=== PATIENT | male | born 1945 | race Caucasian/White ===

== ENCOUNTER 2019-03-22 23:32 | Emergency (ER) | payer SELFPAY ==
[~2019-03-22] VITALS: Ht 177.8 cm; Wt 131.1 kg
[2019-03-23] MEDS ORDERED: DIAZEPAM5 MG PO (03:50)
[2019-03-23] MEDS ORDERED: WARFARIN SODIU2.5 MG PO (03:50)
[2019-03-23] MEDS ORDERED: AMIODARONE HCL200 MG PO (03:50)
[2019-03-23] MEDS ORDERED: ADCIRCA20 MG PO (03:50)
[2019-03-23] MEDS ORDERED: alogliptin PO (03:50)
[2019-03-23] MEDS ORDERED: PIOGLITAZONE HC45 MG PO (03:50)
[2019-03-23] MEDS ORDERED: ATORVASTATIN CA20 MG PO (03:50)
[2019-03-23] MEDS ORDERED: METFORMIN HCL500 MG PO (03:50)
[2019-03-23] MEDS ORDERED: FINASTERIDE5 MG PO (03:50)
[2019-03-23] MEDS ORDERED: BACLOFEN10 MG PO (03:50)
[2019-03-23] MEDS ORDERED: TIZANIDINE HCL4 MG PO (03:50)
[2019-03-23] MEDS ORDERED: LISINOPRIL2.5 MG PO (03:50)
[2019-03-23] MEDS ORDERED: VITAMIN D250000 UNIT PO (03:50)
[2019-03-23] MEDS ORDERED: GLIPIZIDE5 MG PO (03:50)
[2019-03-23] MEDS ORDERED: ASPIR 8181 MG PO (03:50)
== END 2019-03-22 23:53 | disposition left against medical advice (07) ==
LOC: ER 23:32
DX: R69 Illness, unspecified (principal)

== ENCOUNTER 2019-11-30 15:13 | Observation (INO) | payer OTHER ==
[~2019-11-30] VITALS: Ht 177.8 cm; Wt 131.1 kg
[~2019-11-30 15:13] MED LIST: ADCIRCA20 MG PO; AMIODARONE HCL200 MG PO; ASPIR 8181 MG PO; ATORVASTATIN CA20 MG PO; BACLOFEN10 MG PO; DIAZEPAM5 MG PO; FINASTERIDE5 MG PO; GLIPIZIDE5 MG PO; LISINOPRIL2.5 MG PO; METFORMIN HCL500 MG PO; PIOGLITAZONE HC45 MG PO; TIZANIDINE HCL4 MG PO; VITAMIN D250000 UNIT PO; WARFARIN SODIU2.5 MG PO; alogliptin PO
[2019-11-30 16:14] LABS: BASOPHILS % 0.2 % (0.0-1.0); HEMATOCRIT 34.2 % (38.2-49.6); HEMOGLOBIN 11.1 g/dL (14.0-18.0); LYMPHOCYTES # (AUTO) 0.3 (1.0-3.2); LYMPHOCYTES % 2.9 % (18.0-39.1); MEAN CORPUSCULAR HEMOGLOBIN 31.2 pg (28-32); MEAN CORPUSCULAR HGB CONC 32.5 g/dL (31-35); MEAN CORPUSCULAR VOLUME 96.1 fL (81-99); MONOCYTES # (AUTO) 0.6 (0.2-0.8); MONOCYTES % 5.7 % (4.4-11.3); NEUTROPHILS # (AUTO) 9.4 (2.1-6.9); NEUTROPHILS % 90.5 % (38.7-80.0); PLATELET COUNT 245 x10e3/uL (140-360); RED BLOOD COUNT 3.56 x10e6/uL (4.3-5.7); RED CELL DISTRIBUTION WIDTH 15.5 % (11.7-14.4)
[2019-11-30 16:26] LABS: PARTIAL THROMBOPLASTIN TIME 59.3 seconds (23.8-35.5)
[2019-11-30 16:27] LABS: PROTHROMBIN TIME 45.5 seconds (11.9-14.5)
[2019-11-30 16:28] LABS: INR 4.39
--- NOTE | 2019-11-30 16:29 | Diagnostic Imaging Report ---
EXAMINATION: CHEST SINGLE (PORTABLE) INDICATION: Leg pain COMPARISON: None FINDINGS: LINES/TUBES:None LUNGS:The lungs are well-inflated. No focal consolidation or pulmonary edema. PLEURA:No pleural effusion or pneumothorax. MEDIASTINUM:The cardiac silhouette is at the upper limits of normal for size. Atherosclerotic calcifications of the thoracic aorta. BONES/SOFT TISSUES:No acute osseous injury. ABDOMEN:No free air under the diaphragm. IMPRESSION: No focal pneumonia or pulmonary edema. Signed by: Randy Yousif MD on 11/30/2019 4:26 PM
[2019-11-30 16:32] LABS: ALANINE AMINOTRANSFERASE 15 IU/L (0-55); ALBUMIN 3.5 g/dL (3.5-5.0); ALBUMIN/GLOBULIN RATIO 1.1 (0.8-2.0); ALKALINE PHOSPHATASE 58 IU/L (40-150); ANION GAP 14.8 mmol/L (8-16); BLOOD UREA NITROGEN 36 mg/dL (7-26); BUN/CREATININE RATIO 21 (6-25); CALCIUM 8.6 mg/dL (8.4-10.2); CARBON DIOXIDE 25 mmol/L (22-29); CHLORIDE 101 mmol/L (98-107); CREATINE KINASE 115 IU/L (30-200); CREATININE, SERUM 1.72 mg/dL (0.72-1.25); EST GLOMERULAR FILTRATION RATE 39 ML/MIN (60-); GLUCOSE 306 mg/dL (74-118); POTASSIUM 4.8 mmol/L (3.5-5.1); SODIUM 136 mmol/L (136-145)
[2019-11-30] MEDS ORDERED: PHYTONADIONE 10 MG/ML AMP PO ONE (17:30)
[2019-11-30] MEDS ORDERED: SODIUM CHLORIDE 0.9% 500ML 500 ML IV ONE (18:00)
--- NOTE | 2019-11-30 18:52 | Diagnostic Imaging Report ---
EXAM: Soft tissue Ultrasound INDICATION: SOFT TISSUE, EVAL HEMATOMA RIGHT LEG COMPARISON: None TECHNIQUE: Transverse and sagittal images of the right leg were obtained. FINDINGS/IMPRESSION: Ultrasound images of the right leg were obtained and demonstrated a 8.3 x 3.4 x 5.8 cm subcutaneous soft tissue hematoma. Signed by: Luke Mendoza MD on 11/30/2019 6:48 PM
[2019-11-30] MEDS ORDERED: MORPHINE SULFATE 2 MG/ML SYR 1ML IV PRN (19:15)
[2019-11-30] MEDS ORDERED: ONDANSETRON HCL INJ 2MG/ML 2ML 2 MG/ML VIAL IV PRN ×2 (19:15→22:15)
[2019-11-30] MEDS ORDERED: SODIUM CHLORIDE 0.9% 1000ML 1,000 ML IV SCH (19:15)
[2019-11-30] MEDS ORDERED: MORPHINE SULFATE INJ 4 MG/ML INJ 1ML IV PRN (19:30)
[2019-11-30 20:00] VITALS: BP 186/79
[2019-11-30 20:10] VITALS: BP 176/79
[2019-11-30 21:00] VITALS: BP 176/79
[2019-11-30] MEDS ORDERED: AMLODIPINE BESYLATE 10 MG TAB PO ONE (21:45)
[2019-11-30] MEDS ORDERED: TADALAFIL 20 MG PO SCH (22:15)
[2019-11-30] MEDS ORDERED: ACETAMINOPHEN 325 MG TAB PO PRN (22:15)
[2019-11-30] MEDS ORDERED: TIZANIDINE HCL 4 MG TAB PO SCH (22:15)
[2019-11-30] MEDS ORDERED: ACETAMINOPHEN/CODEINE 300MG - 30MG TAB PO PRN (22:15)
[2019-11-30] MEDS ORDERED: ONDANSETRON HCL 4 MG ORAL DISINTEGRATING TAB PO PRN (22:15)
[2019-11-30] MEDS ORDERED: HYDRALAZINE HCL 25 MG TAB PO PRN (22:15)
[2019-11-30] MEDS ORDERED: DIAZEPAM 5 MG TAB PO PRN (22:15)
[2019-11-30] MEDS ORDERED: DEXTROSE 50% SYRINGE 50 ML IV PRN ×3 (22:30)
[2019-11-30] MEDS: INSULIN LISPRO 100 UNIT/1 ML 3ML VIAL SQ SCH (22:30)
[2019-12-01] VITALS: BP 186/79
[2019-12-01] MEDS: FINASTERIDE 5 MG TAB PO SCH ×2 (00:59→09:00)
[2019-12-01 04:00] VITALS: BP 126/64
[2019-12-01 05:35] LABS: BASOPHILS % 0.2 % (0.0-1.0); EOSINOPHILS # (AUTO) 0.1 (0.0-0.4); EOSINOPHILS % 1.1 % (0.0-6.0); HEMATOCRIT 31.5 % (38.2-49.6); HEMOGLOBIN 10.6 g/dL (14.0-18.0); LYMPHOCYTES # (AUTO) 1.4 (1.0-3.2); LYMPHOCYTES % 15.2 % (18.0-39.1); MEAN CORPUSCULAR HEMOGLOBIN 31.7 pg (28-32); MEAN CORPUSCULAR HGB CONC 33.7 g/dL (31-35); MEAN CORPUSCULAR VOLUME 94.3 fL (81-99); MONOCYTES # (AUTO) 1.1 (0.2-0.8); MONOCYTES % 11.3 % (4.4-11.3); NEUTROPHILS # (AUTO) 6.8 (2.1-6.9); NEUTROPHILS % 71.6 % (38.7-80.0); PLATELET COUNT 229 x10e3/uL (140-360); RED BLOOD COUNT 3.34 x10e6/uL (4.3-5.7); RED CELL DISTRIBUTION WIDTH 15.5 % (11.7-14.4)
[2019-12-01 05:56] LABS: INR 2.49; PROTHROMBIN TIME 28.8 seconds (11.9-14.5)
[2019-12-01 06:05] LABS: ALBUMIN 3.2 g/dL (3.5-5.0); ALBUMIN/GLOBULIN RATIO 1.1 (0.8-2.0); ANION GAP 10.9 mmol/L (8-16); CALCIUM 8.6 mg/dL (8.4-10.2); CREATININE, SERUM 1.36 mg/dL (0.72-1.25); POTASSIUM 3.9 mmol/L (3.5-5.1)
[2019-12-01] MEDS ORDERED: GLIPIZIDE 5 MG TAB PO SCH (07:30)
[2019-12-01] MEDS: INSULIN LISPRO 100 UNIT/1 ML 3ML VIAL SQ SCH ×2 (07:30→11:30)
[2019-12-01 07:50] VITALS: BP 147/67
[2019-12-01 08:30] VITALS: BP 147/67
[2019-12-01] MEDS ORDERED: PIOGLITAZONE HCL 15 MG TAB PO SCH (09:00)
[2019-12-01] MEDS ORDERED: ERGOCALCIFEROL 50,000 UNIT CAP PO SCH (09:00)
[2019-12-01] MEDS ORDERED: BACLOFEN 10 MG TAB PO SCH ×2 (09:00→21:00)
[2019-12-01] MEDS ORDERED: SILDENAFIL CITRATE 20 MG TAB PO SCH (17:00)
[2019-12-01] MEDS ORDERED: WARFARIN SOD 3 MG TAB PO SCH (17:00)
[2019-12-01] MEDS ORDERED: ATORVASTATIN 20 MG TAB PO SCH (21:00)
== END 2019-12-01 13:26 | disposition home or self-care (01) ==
LOC: ER 15:13 → ERHOLD 19:07 → MED/SURG2 20:06
PROVIDERS: ADMIT Internal Medicine; ATTEND Internal Medicine
DX: M79.81 Nontraumatic hematoma of soft tissue (principal); T45.515A Adverse effect of anticoagulants, initial encounter; I10 Essential (primary) hypertension; E11.9 Type 2 diabetes mellitus without complications; I48.91 Unspecified atrial fibrillation; Z79.01 Long term (current) use of anticoagulants; F41.9 Anxiety disorder, unspecified; Z83.3 Family history of diabetes mellitus; Z82.49 Family history of ischemic heart disease and other diseases of the circulatory system; L30.8 Other specified dermatitis; M25.461 Effusion, right knee; G47.00 Insomnia, unspecified; I87.8 Other specified disorders of veins; Z91.14 Patient's other noncompliance with medication regimen; Z79.82 Long term (current) use of aspirin; Z79.84 Long term (current) use of oral hypoglycemic drugs
CPT/HCPCS: 36415; 71045; 76882; 80053; 82550; 82553; 82948; 83880; 84484; 85025; 85610; 85730; 93005; 93971; 99284; G0378; J3430; J7040

== ENCOUNTER 2022-02-19 15:19 | Emergency (ER) | payer MEDICARE, OTHER ==
[~2022-02-19] VITALS: Ht 177.8 cm; Wt 131.1 kg
[2022-02-19] MEDS ORDERED: ONDANSETRON HCL INJ 2MG/ML 2ML 2 MG/ML VIAL IV STA (15:26)
[2022-02-19 15:54] LABS: BASOPHILS % 0.3 % (0.0-1.0); EOSINOPHILS % 0.1 % (0.0-6.0); HEMATOCRIT 36.9 % (38.2-49.6); LYMPHOCYTES # (AUTO) 0.6 (1.0-3.2); LYMPHOCYTES % 5.1 % (18.0-39.1); MEAN CORPUSCULAR HEMOGLOBIN 30.6 pg (28-32); MEAN CORPUSCULAR HGB CONC 32.5 g/dL (31-35); MEAN CORPUSCULAR VOLUME 94.1 fL (81-99); MONOCYTES # (AUTO) 0.6 (0.2-0.8); MONOCYTES % 5.6 % (4.4-11.3); NEUTROPHILS # (AUTO) 9.7 (2.1-6.9); NEUTROPHILS % 88.4 % (38.7-80.0); PLATELET COUNT 200 x10e3/uL (140-360); RED BLOOD COUNT 3.92 x10e6/uL (4.3-5.7); RED CELL DISTRIBUTION WIDTH 14.7 % (11.7-14.4)
[2022-02-19 16:11] LABS: ALBUMIN 3.4 g/dL (3.5-5.0); ANION GAP 14.8 mmol/L (8-16); CALCIUM 8.3 mg/dL (8.4-10.2); CREATININE, SERUM 1.3 mg/dL (0.72-1.25); POTASSIUM 3.8 mmol/L (3.5-5.1)
== END 2022-02-19 17:53 | disposition home or self-care (01) ==
LOC: ER 15:23
DX: R07.89 Other chest pain (principal); R06.02 Shortness of breath; I10 Essential (primary) hypertension; E11.65 Type 2 diabetes mellitus with hyperglycemia; E78.5 Hyperlipidemia, unspecified; F41.9 Anxiety disorder, unspecified; I25.10 Atherosclerotic heart disease of native coronary artery without angina pectoris; I48.91 Unspecified atrial fibrillation
CPT/HCPCS: 0223U; 36415; 71045; 80053; 83880; 84484; 85025; 99285; J2405

== ENCOUNTER 2024-08-07 16:22 | Emergency (ER) | payer MEDICARE, OTHER ==
[~2024-08-07] VITALS: Ht 177.8 cm; Wt 131.1 kg
[2024-08-07 17:03] VITALS: PULSE 76; RESP 18; TEMP 100.2; O2SAT 100
[2024-08-07 17:31] LABS: BILIRUBIN,URINE NEGATIVE (NEGATIVE); CLARITY,URINE SL CLOUDY (CLEAR); COLOR,URINE RED (YELLOW); GLUCOSE, URINE NEGATIVE (NEGATIVE); KETONES,URINE NEGATIVE (NEGATIVE); LEUKOCYTE ESTERASE ,URINE TRACE (NEGATIVE); NITRITE,URINE NEGATIVE (NEGATIVE); PH,URINE 7 (5 - 7); PROTEIN,URINE DIPSTICK >=300 (NEGATIVE); URINE UROBILINOGEN 0.2 mg/dL (0.2 - 1)
[2024-08-07 17:45] LABS: BACTERIA,URINE FEW /HPF; RBC,URINE >50 /HPF (0-5); WBC,URINE (MAN) 0-5 /HPF (0-5)
[2024-08-07] MEDS ORDERED: CEFDINIR300 MG PO (18:04)
== END 2024-08-07 18:09 | disposition home or self-care (01) ==
LOC: ER 17:09
DX: R50.9 Fever, unspecified (principal); N30.91 Cystitis, unspecified with hematuria; R30.0 Dysuria; I10 Essential (primary) hypertension; E11.9 Type 2 diabetes mellitus without complications; J44.9 Chronic obstructive pulmonary disease, unspecified; I48.91 Unspecified atrial fibrillation; E78.5 Hyperlipidemia, unspecified; I25.10 Atherosclerotic heart disease of native coronary artery without angina pectoris; F41.9 Anxiety disorder, unspecified; Z79.01 Long term (current) use of anticoagulants
CPT/HCPCS: 81001; 87086; 87186; 99283

== ENCOUNTER 2024-08-09 13:19 | Inpatient (IN) | payer MEDICARE, OTHER ==
[2024-08-09] VITALS (8 sets, daily range): BP systolic 128–156; BP diastolic 56–77; PULSE 74–94; RESP 16–20; TEMP 97.7–100.2; O2SAT 85–98
[~2024-08-09] VITALS: Ht 180.3 cm; Wt 117.9 kg
[~2024-08-09 13:19] MED LIST changes: +CEFDINIR300 MG PO
[2024-08-09 13:54] LABS: BASOPHILS % 0.2 % (0.0-1.0); EOSINOPHILS % 0.2 % (0.0-6.0); HEMATOCRIT 36.9 % (38.2-49.6); HEMOGLOBIN 11.6 g/dL (14.0-18.0); LYMPHOCYTES # (AUTO) 0.2 (1.0-3.2); LYMPHOCYTES % 4.5 % (18.0-39.1); MEAN CORPUSCULAR HEMOGLOBIN 31.3 pg (28-32); MEAN CORPUSCULAR HGB CONC 31.4 g/dL (31-35); MEAN CORPUSCULAR VOLUME 99.5 fL (81-99); MONOCYTES # (AUTO) 0.1 (0.2-0.8); MONOCYTES % 1.7 % (4.4-11.3); PLATELET COUNT 186 x10e3/uL (140-360); RED BLOOD COUNT 3.71 x10e6/uL (4.3-5.7); RED CELL DISTRIBUTION WIDTH 14.5 % (11.7-14.4); WHITE BLOOD COUNT 5.32 x10e3/uL (4.8-10.8)
[2024-08-09 14:04] LABS: CLARITY,URINE CLEAR (CLEAR); COLOR,URINE YELLOW (YELLOW); PH,URINE 7 (5 - 7)
[2024-08-09 14:05] LABS: BILIRUBIN,URINE NEGATIVE (NEGATIVE); GLUCOSE, URINE 1+ (NEGATIVE); KETONES,URINE NEGATIVE (NEGATIVE); LEUKOCYTE ESTERASE ,URINE NEGATIVE (NEGATIVE); NITRITE,URINE NEGATIVE (NEGATIVE); PROTEIN,URINE DIPSTICK >=300 (NEGATIVE); URINE UROBILINOGEN 0.2 mg/dL (0.2 - 1)
[2024-08-09 14:15] LABS: ALBUMIN 2.4 g/dL (3.5-5.0); ALBUMIN/GLOBULIN RATIO 0.6 (0.8-2.0); ANION GAP 17.9 mmol/L (8-16); BILIRUBIN,TOTAL 0.8 mg/dL (0.2-1.2); CALCIUM 8.5 mg/dL (8.4-10.2); CREATININE, SERUM 2.17 mg/dL (0.72-1.25); POTASSIUM 3.9 mmol/L (3.5-5.1); TOTAL PROTEIN 6.3 g/dL (6.5-8.1)
[2024-08-09 14:17] LABS: BACTERIA,URINE RARE /HPF; EPITHELIAL CELLS,URINE RARE /LPF
[2024-08-09] MEDS ORDERED: SODIUM CHLORIDE 0.9% 1000ML 1,000 ML IV SCH (14:45)
[2024-08-09] MEDS ORDERED: HYDRALAZINE HCL 20 MG/ML VIAL IV PRN (15:30)
[2024-08-09] MEDS ORDERED: DEXTROSE 50% SYRINGE 50 ML IV PRN (15:30)
[2024-08-09] MEDS: INSULIN LISPRO 100 UNIT/1 ML 3ML VIAL SQ SCH (16:30)
[2024-08-09] MEDS: BACLOFEN 10 MG TAB PO SCH (18:43)
[2024-08-09] MEDS: APIXABAN 5 MG TABLET PO SCH (18:43)
[2024-08-09] MEDS: SODIUM CHLORIDE 0.9% 1000ML 1,000 ML IV SCH (18:43)
[2024-08-09] MEDS: LACTOBACILLUS ACIDOPHILUS CAPSULE PO SCH (21:52)
[2024-08-09] MEDS: ATORVASTATIN 20 MG TAB PO SCH (21:53)
[2024-08-09] MEDS: GLIPIZIDE 5 MG TAB PO ONE (23:09)
[2024-08-10] VITALS (8 sets, daily range): BP systolic 134–175; BP diastolic 64–85; PULSE 67–116; RESP 18–22; TEMP 97.8–98.2; O2SAT 95–99
[2024-08-10 05:32] LABS: BASOPHILS % 0.2 % (0.0-1.0); EOSINOPHILS % 0.2 % (0.0-6.0); HEMATOCRIT 41.4 % (38.2-49.6); HEMOGLOBIN 12.1 g/dL (14.0-18.0); LYMPHOCYTES # (AUTO) 0.4 (1.0-3.2); MEAN CORPUSCULAR HEMOGLOBIN 31.1 pg (28-32); MEAN CORPUSCULAR HGB CONC 29.2 g/dL (31-35); MEAN CORPUSCULAR VOLUME 106.4 fL (81-99); MONOCYTES # (AUTO) 1.2 (0.2-0.8); MONOCYTES % 9.5 % (4.4-11.3); NEUTROPHILS # (AUTO) 10.8 (2.1-6.9); NEUTROPHILS % 86.6 % (38.7-80.0); PLATELET COUNT 172 x10e3/uL (140-360); RED BLOOD COUNT 3.89 x10e6/uL (4.3-5.7); RED CELL DISTRIBUTION WIDTH 14.8 % (11.7-14.4); WHITE BLOOD COUNT 12.48 x10e3/uL (4.8-10.8)
[2024-08-10 06:09] LABS: CALCIUM 8.5 mg/dL (8.4-10.2); CREATININE, SERUM 2.29 mg/dL (0.72-1.25)
[2024-08-10] MEDS ORDERED: GLIPIZIDE 5 MG TAB PO SCH (07:30)
[2024-08-10] MEDS: PIOGLITAZONE HCL 15 MG TAB PO SCH (08:39)
[2024-08-10] MEDS: LISINOPRIL 2.5 MG TAB PO SCH (08:40)
[2024-08-10] MEDS: GLIPIZIDE 5 MG TAB PO SCH (08:40)
[2024-08-10] MEDS: AMIODARONE HCL 200 MG TAB PO SCH (08:40)
[2024-08-10] MEDS: ASPIRIN 81 MG CHEW TAB PO SCH (08:41)
[2024-08-10] MEDS: FINASTERIDE 5 MG TAB PO SCH (08:41)
[2024-08-10] MEDS: DIAZEPAM 5 MG TAB PO SCH (08:44)
[2024-08-10] MEDS: ONDANSETRON HCL INJ 2MG/ML 2ML 2 MG/ML VIAL IV PRN (08:50)
[2024-08-10] MEDS: ACETAMINOPHEN 325 MG TAB PO PRN (08:51)
[2024-08-10] MEDS: BACLOFEN 10 MG TAB PO SCH (23:31)
[2024-08-11] VITALS (10 sets, daily range): BP systolic 142–172; BP diastolic 72–97; PULSE 68–78; RESP 18–22; TEMP 97.4–100.2; O2SAT 97–100
[2024-08-11 00:47] LABS: % IRON SATURATION 12 % (15-50); IRON 33 ug/dL (65-175); TOTAL IRON BINDING CAPACITY 265 ug/dL (261-478); TRANSFERRIN 189 mg/dL (174-364)
[2024-08-11 02:15] LABS: FOLATE 6.9 ng/mL (7.0-15.4)
[2024-08-11 05:16] LABS: BASOPHILS % 0.5 % (0.0-1.0); EOSINOPHILS % 0.3 % (0.0-6.0); LYMPHOCYTES # (AUTO) 0.3 (1.0-3.2); MEAN CORPUSCULAR HEMOGLOBIN 31.1 pg (28-32); MEAN CORPUSCULAR HGB CONC 30.6 g/dL (31-35); MEAN CORPUSCULAR VOLUME 101.7 fL (81-99); MONOCYTES # (AUTO) 0.8 (0.2-0.8); MONOCYTES % 11.4 % (4.4-11.3); NEUTROPHILS # (AUTO) 5.5 (2.1-6.9); NEUTROPHILS % 83.2 % (38.7-80.0); PLATELET COUNT 163 x10e3/uL (140-360); RED BLOOD COUNT 3.54 x10e6/uL (4.3-5.7); RED CELL DISTRIBUTION WIDTH 14.7 % (11.7-14.4); WHITE BLOOD COUNT 6.58 x10e3/uL (4.8-10.8)
[2024-08-11 05:48] LABS: ANION GAP 15.5 mmol/L (8-16); CALCIUM 7.7 mg/dL (8.4-10.2); CREATININE, SERUM 2.9 mg/dL (0.72-1.25); POTASSIUM 3.5 mmol/L (3.5-5.1)
[2024-08-11] MEDS: DICYCLOMINE HCL 10 MG CAP PO SCH (08:58)
[2024-08-11] MEDS: ERGOCALCIFEROL 50,000 UNIT CAP PO SCH (09:07)
[2024-08-11] MEDS: IRON SUCROSE 100 MG in SODIUM CHLORIDE 0.9% 100 ML IV SCH (14:16)
[2024-08-11] MEDS: DOCUSATE SODIUM 100 MG CAP PO PRN (16:57)
[2024-08-12 02:32] LABS: CDIFF AG QUIK CHEK NEGATIVE (NEGATIVE)
[2024-08-12 02:33] LABS: CDIFF TOX QUIK CHEK NEGATIVE (NEGATIVE)
[2024-08-12 03:42] VITALS: BP 137/66; PULSE 63; RESP 18; TEMP 98.3; O2SAT 100
[2024-08-12 06:09] LABS: ALBUMIN/GLOBULIN RATIO 0.6 (0.8-2.0); ANION GAP 14.4 mmol/L (8-16); BILIRUBIN,TOTAL 0.3 mg/dL (0.2-1.2); CALCIUM 7.6 mg/dL (8.4-10.2); CREATININE, SERUM 3.16 mg/dL (0.72-1.25); TOTAL PROTEIN 5.6 g/dL (6.5-8.1)
[2024-08-12 06:12] LABS: POTASSIUM 3.4 mmol/L (3.5-5.1)
[2024-08-12 08:40] VITALS: BP 172/91; PULSE 70; RESP 20; TEMP 98.3; O2SAT 100
[2024-08-12 09:44] VITALS: BP 172/91; PULSE 70; RESP 20; TEMP 98.3; O2SAT 100
[2024-08-12] MEDS: CEFTRIAXONE 2 GM in SODIUM CHLORIDE 0.9% 100 ML IV SCH (10:04)
[2024-08-12] MEDS ORDERED: CIPRO500 MG PO (11:04)
[2024-08-12] MEDS ORDERED: ACIDOPHILUS1 EAC1 PO (11:06)
[2024-08-12 11:49] VITALS: BP 139/85; PULSE 84; RESP 19; TEMP 98.3; O2SAT 100
[2024-08-12] MEDS ORDERED: FERROUS SULFAT325 M1 PO (12:15)
[2024-08-12] MEDS: LACTATED RINGER'S 500 ML IV ONE (13:39)
[2024-08-12 16:00] VITALS: BP 163/92; PULSE 69; RESP 18; TEMP 98; O2SAT 100
[2024-08-12 19:13] LABS: ANION GAP 14.9 mmol/L (8-16); CALCIUM 7.7 mg/dL (8.4-10.2); CREATININE, SERUM 3.17 mg/dL (0.72-1.25); POTASSIUM 3.9 mmol/L (3.5-5.1)
[2024-08-12 21:00] VITALS: BP 163/92; PULSE 69; RESP 18; TEMP 98; O2SAT 100
[2024-08-12] MEDS: CYANOCOBALAMIN INJ 1,000 MCG/ML VIAL IM ONE (22:34)
[2024-08-12] MEDS: FOLIC ACID 1 MG TAB PO ONE (22:35)
[2024-08-13 00:40] VITALS: BP 158/79; PULSE 70; RESP 18; TEMP 98.1; O2SAT 100
[2024-08-13 04:19] VITALS: BP 182/70; PULSE 65; RESP 18; TEMP 98.1; O2SAT 99
[2024-08-13 06:25] LABS: ANION GAP 15.6 mmol/L (8-16); CREATININE, SERUM 3.14 mg/dL (0.72-1.25); POTASSIUM 3.6 mmol/L (3.5-5.1)
[2024-08-13 07:37] VITALS: BP 159/88; PULSE 74; RESP 18; TEMP 98.1; O2SAT 100
[2024-08-13] MEDS: CYANOCOBALAMIN INJ 1,000 MCG/ML VIAL IM SCH (09:00)
[2024-08-13 10:00] VITALS: BP 159/88; PULSE 74; RESP 18; TEMP 98.1; O2SAT 100
[2024-08-13] MEDS: FOLIC ACID 1 MG TAB PO SCH (10:49)
[2024-08-13 11:34] VITALS: BP 163/85; PULSE 84; RESP 17; TEMP 97.5; O2SAT 100
[2024-08-13] MEDS ORDERED: CIPRO500 MG PO (12:27)
[2024-08-13 15:36] VITALS: BP 155/88; PULSE 78; RESP 17; TEMP 97.9; O2SAT 99
[2024-08-16 07:13] LABS: ENDOMYSIAL ANTIBODIES, IGA Negative (Negative)
[2024-08-16 08:18] LABS: IMMUNOGLOBULIN A 159 mg/dL (61-437); TISSUE TRANSGLUTAMINASE IGA AB <2 U/mL (0-3)
== END 2024-08-13 16:45 | disposition home or self-care (01) | DRG 872 ==
LOC: ER 13:26 → ERHOLD 14:35 → MED/SURG2 16:40 → OBSVTOIN 08-10 12:43
PROVIDERS: ADMIT Internal Medicine; ATTEND Internal Medicine
DX: A41.51 Sepsis due to Escherichia coli [E. coli] (principal); N39.0 Urinary tract infection, site not specified; N17.9 Acute kidney failure, unspecified; I12.9 Hypertensive chronic kidney disease with stage 1 through stage 4 chronic kidney disease, or unspecified chronic kidney disease; E11.22 Type 2 diabetes mellitus with diabetic chronic kidney disease; N18.9 Chronic kidney disease, unspecified; I48.91 Unspecified atrial fibrillation; Z79.01 Long term (current) use of anticoagulants; K58.0 Irritable bowel syndrome with diarrhea; D50.9 Iron deficiency anemia, unspecified; Z79.4 Long term (current) use of insulin; Z79.84 Long term (current) use of oral hypoglycemic drugs; J44.9 Chronic obstructive pulmonary disease, unspecified; I25.10 Atherosclerotic heart disease of native coronary artery without angina pectoris; E78.00 Pure hypercholesterolemia, unspecified; I87.2 Venous insufficiency (chronic) (peripheral); R32 Unspecified urinary incontinence; F41.9 Anxiety disorder, unspecified; G47.30 Sleep apnea, unspecified; Z79.899 Other long term (current) drug therapy
CPT/HCPCS: 36415; 74176; 76705; 80048; 80053; 81001; 82607; 82746; 82784; 82948; 83516; 83540; 83605; 83630; 83993; 84300; 84466; 85025; 85045; 86256; 87040; 87045; 87071; 87086; 87177; 87186; 87205; 87324; 87449; 94799; 99252; 99284; G0378; J0696; J1756; J2405; J2543; J3420; J7030; J7050; J7120

== ENCOUNTER 2024-09-14 13:47 | Inpatient (IN) | payer MEDICARE ==
[~2024-09-14] VITALS: Ht 180.3 cm; Wt 117.9 kg
[2024-09-14] VITALS (8 sets, daily range): BP systolic 174–198; BP diastolic 89–100; PULSE 68–84; RESP 18–20; TEMP 97.3–98.6; O2SAT 100
[~2024-09-14 13:47] MED LIST changes: +ACIDOPHILUS1 EAC1 PO; +CIPRO500 MG PO; +FERROUS SULFAT325 M1 PO
[2024-09-14] MEDS: SODIUM CHLORIDE 0.9% 1000ML 1,000 ML IV ONE (14:37)
[2024-09-14 14:45] LABS: BASOPHILS % 0.2 % (0.0-1.0); EOSINOPHILS % 0.3 % (0.0-6.0); HEMATOCRIT 30.7 % (38.2-49.6); HEMOGLOBIN 10.2 g/dL (14.0-18.0); LYMPHOCYTES # (AUTO) 0.5 (1.0-3.2); LYMPHOCYTES % 3.4 % (18.0-39.1); MEAN CORPUSCULAR HEMOGLOBIN 31.2 pg (28-32); MEAN CORPUSCULAR HGB CONC 33.2 g/dL (31-35); MEAN CORPUSCULAR VOLUME 93.9 fL (81-99); MONOCYTES % 6.8 % (4.4-11.3); NEUTROPHILS # (AUTO) 12.9 (2.1-6.9); NEUTROPHILS % 88.9 % (38.7-80.0); PLATELET COUNT 272 x10e3/uL (140-360); RED BLOOD COUNT 3.27 x10e6/uL (4.3-5.7); RED CELL DISTRIBUTION WIDTH 14.7 % (11.7-14.4); WHITE BLOOD COUNT 14.46 x10e3/uL (4.8-10.8)
[2024-09-14 14:50] LABS: INR 1.04; PROTHROMBIN TIME 14.2 seconds (11.9-14.5)
[2024-09-14 14:51] LABS: PARTIAL THROMBOPLASTIN TIME 33.9 seconds (23.8-35.5)
[2024-09-14 14:58] LABS: ALBUMIN 2.9 g/dL (3.5-5.0); ALBUMIN/GLOBULIN RATIO 0.8 (0.8-2.0); ANION GAP 15.1 mmol/L (8-16); BILIRUBIN,TOTAL 0.3 mg/dL (0.2-1.2); CALCIUM 8.4 mg/dL (8.4-10.2); CREATININE, SERUM 2.5 mg/dL (0.72-1.25); POTASSIUM 4.1 mmol/L (3.5-5.1); TOTAL PROTEIN 6.5 g/dL (6.5-8.1)
[2024-09-14 15:07] LABS: BILIRUBIN,URINE MODERATE (NEGATIVE); CLARITY,URINE TURBID (CLEAR); COLOR,URINE RED (YELLOW); GLUCOSE, URINE 500 (NEGATIVE); KETONES,URINE TRACE (NEGATIVE); LEUKOCYTE ESTERASE ,URINE LARGE (NEGATIVE); NITRITE,URINE POSITIVE (NEGATIVE); PH,URINE 6 (5 - 7); PROTEIN,URINE DIPSTICK >=300 (NEGATIVE); URINE UROBILINOGEN 1 mg/dL (0.2 - 1)
[2024-09-14 15:10] LABS: BACTERIA,URINE MANY /HPF; EPITHELIAL CELLS,URINE FEW /LPF; RBC,URINE >50 /HPF (0-5); WBC,URINE (MAN) >50 /HPF (0-5)
[2024-09-14] MEDS ORDERED: SODIUM CHLORIDE FLUSH 10 ML SYR INJ PRN (15:30)
[2024-09-14] MEDS: HYDRALAZINE HCL 20 MG/ML VIAL IV STA (16:07)
[2024-09-14] MEDS: NIFEDIPINE CR 30 MG TAB PO SCH (23:51)
[2024-09-15] VITALS (13 sets, daily range): BP systolic 142–205; BP diastolic 63–89; PULSE 67–89; RESP 18–22; TEMP 96–98.3; O2SAT 97–100
[2024-09-15 05:29] LABS: BASOPHILS % 0.2 % (0.0-1.0); EOSINOPHILS # (AUTO) 0.1 (0.0-0.4); HEMATOCRIT 28.7 % (38.2-49.6); HEMOGLOBIN 9.4 g/dL (14.0-18.0); MEAN CORPUSCULAR HEMOGLOBIN 30.8 pg (28-32); MEAN CORPUSCULAR HGB CONC 32.8 g/dL (31-35); MEAN CORPUSCULAR VOLUME 94.1 fL (81-99); MONOCYTES % 10.5 % (4.4-11.3); NEUTROPHILS # (AUTO) 7.7 (2.1-6.9); PLATELET COUNT 232 x10e3/uL (140-360); RED BLOOD COUNT 3.05 x10e6/uL (4.3-5.7); RED CELL DISTRIBUTION WIDTH 14.7 % (11.7-14.4); WHITE BLOOD COUNT 9.89 x10e3/uL (4.8-10.8)
[2024-09-15 06:29] LABS: ALBUMIN 2.6 g/dL (3.5-5.0); ALBUMIN/GLOBULIN RATIO 0.8 (0.8-2.0); ANION GAP 14.6 mmol/L (8-16); BILIRUBIN,TOTAL 0.4 mg/dL (0.2-1.2); CALCIUM 8.2 mg/dL (8.4-10.2); CREATININE, SERUM 2.28 mg/dL (0.72-1.25); POTASSIUM 3.6 mmol/L (3.5-5.1); TOTAL PROTEIN 5.8 g/dL (6.5-8.1)
[2024-09-15] MEDS ORDERED: MELATONIN 3 MG TAB PO PRN (07:45)
[2024-09-15] MEDS ORDERED: DEXTROSE 50% SYRINGE 50 ML IV PRN (07:45)
[2024-09-15] MEDS ORDERED: METOPROLOL TARTRATE INJ 1 MG/ML VIAL IV PRN (07:45)
[2024-09-15] MEDS ORDERED: ALBUTEROL/IPRATROPIUM 3 ML NEB NEB PRN (07:45)
[2024-09-15] MEDS ORDERED: DOCUSATE SODIUM 100 MG CAP PO PRN (07:45)
[2024-09-15 08:09] LABS: CHOL/HDL RATIO 2.8 (3.9-4.7)
[2024-09-15] MEDS: FERROUS SULFATE 325 MG TAB PO SCH (08:57)
[2024-09-15] MEDS: DIAZEPAM 5 MG TAB PO SCH (08:57)
[2024-09-15] MEDS: PIOGLITAZONE HCL 15 MG TAB PO SCH (08:57)
[2024-09-15] MEDS: BACLOFEN 10 MG TAB PO SCH (08:58)
[2024-09-15] MEDS: FINASTERIDE 5 MG TAB PO SCH (08:58)
[2024-09-15] MEDS: NIFEDIPINE CR 30 MG TAB PO SCH (08:59)
[2024-09-15] MEDS: SENNOSIDES 8.6 MG TAB PO SCH (08:59)
[2024-09-15] MEDS: INSULIN REGULAR, HUMAN 100 UNIT/1 ML SQ SCH (11:30)
[2024-09-15] MEDS: ACETAMINOPHEN 325 MG TAB PO PRN (12:27)
[2024-09-15] MEDS: HYDRALAZINE HCL 20 MG/ML VIAL IV PRN (12:35)
[2024-09-15] MEDS: ONDANSETRON HCL INJ 2MG/ML 2ML 2 MG/ML VIAL IV PRN (16:53)
[2024-09-15] MEDS: TIZANIDINE HCL 4 MG TAB PO SCH (21:00)
[2024-09-15] MEDS: ATORVASTATIN 20 MG TAB PO SCH (21:33)
[2024-09-15] MEDS ORDERED: NIFEDIPINE CR 30 MG TAB PO SCH (23:30)
[2024-09-16] VITALS (11 sets, daily range): BP systolic 126–156; BP diastolic 60–89; PULSE 75–86; RESP 18–20; TEMP 98.3–99.1; O2SAT 95–100
[2024-09-16 06:38] LABS: BASOPHILS % 0.3 % (0.0-1.0); EOSINOPHILS # (AUTO) 0.1 (0.0-0.4); EOSINOPHILS % 1.3 % (0.0-6.0); HEMOGLOBIN 9.7 g/dL (14.0-18.0); LYMPHOCYTES # (AUTO) 1.1 (1.0-3.2); LYMPHOCYTES % 11.7 % (18.0-39.1); MEAN CORPUSCULAR HEMOGLOBIN 31.2 pg (28-32); MEAN CORPUSCULAR HGB CONC 33.4 g/dL (31-35); MEAN CORPUSCULAR VOLUME 93.2 fL (81-99); MONOCYTES % 11.2 % (4.4-11.3); NEUTROPHILS # (AUTO) 6.9 (2.1-6.9); NEUTROPHILS % 75.1 % (38.7-80.0); PLATELET COUNT 248 x10e3/uL (140-360); RED BLOOD COUNT 3.11 x10e6/uL (4.3-5.7); RED CELL DISTRIBUTION WIDTH 14.8 % (11.7-14.4); WHITE BLOOD COUNT 9.21 x10e3/uL (4.8-10.8)
[2024-09-16 08:24] LABS: ANION GAP 13.7 mmol/L (8-16); POTASSIUM 3.7 mmol/L (3.5-5.1)
[2024-09-16 08:25] LABS: BLOOD UREA NITROGEN 17.48 mg/dL (7-26); CALCIUM 8.5 mg/dL (8.4-10.2); CREATININE, SERUM 2.23 mg/dL (0.72-1.25)
[2024-09-16] MEDS: GLIPIZIDE 5 MG TAB ER PO SCH (09:42)
[2024-09-16] MEDS: BACLOFEN 10 MG TAB PO SCH (21:19)
[2024-09-17] VITALS (9 sets, daily range): BP systolic 128–158; BP diastolic 67–95; PULSE 67–84; RESP 18–21; TEMP 98–98.6; O2SAT 96–100
[2024-09-17 06:29] LABS: BASOPHILS % 0.5 % (0.0-1.0); EOSINOPHILS # (AUTO) 0.1 (0.0-0.4); EOSINOPHILS % 1.8 % (0.0-6.0); HEMATOCRIT 30.5 % (38.2-49.6); HEMOGLOBIN 10.1 g/dL (14.0-18.0); LYMPHOCYTES # (AUTO) 1.4 (1.0-3.2); LYMPHOCYTES % 17.8 % (18.0-39.1); MEAN CORPUSCULAR HGB CONC 33.1 g/dL (31-35); MEAN CORPUSCULAR VOLUME 93.6 fL (81-99); MONOCYTES # (AUTO) 0.9 (0.2-0.8); NEUTROPHILS # (AUTO) 5.1 (2.1-6.9); NEUTROPHILS % 67.4 % (38.7-80.0); PLATELET COUNT 233 x10e3/uL (140-360); RED BLOOD COUNT 3.26 x10e6/uL (4.3-5.7); RED CELL DISTRIBUTION WIDTH 14.6 % (11.7-14.4); WHITE BLOOD COUNT 7.59 x10e3/uL (4.8-10.8)
[2024-09-17 06:44] LABS: ANION GAP 16.7 mmol/L (8-16); CALCIUM 8.2 mg/dL (8.4-10.2); CREATININE, SERUM 2.48 mg/dL (0.72-1.25); POTASSIUM 3.7 mmol/L (3.5-5.1)
[2024-09-17] MEDS ORDERED: SENNOSIDES 8.6 MG TAB PO PRN (11:00)
[2024-09-17] MEDS: BACLOFEN 10 MG TAB PO SCH (21:27)
[2024-09-17] MEDS: FINASTERIDE 5 MG TAB PO SCH (21:29)
[2024-09-18] VITALS (10 sets, daily range): BP systolic 135–164; BP diastolic 76–85; PULSE 72–86; RESP 17–20; TEMP 98.1–98.2; O2SAT 96–100
[2024-09-18] MEDS: FUROSEMIDE INJ 10 MG/ML 4 ML VIAL IV SCH (11:01)
[2024-09-19 00:47] VITALS: BP 133/74; PULSE 74; RESP 18; TEMP 98.4; O2SAT 100
[2024-09-19 04:00] VITALS: BP 146/78; PULSE 74; RESP 18; TEMP 98.6; O2SAT 98
[2024-09-19 05:37] LABS: BASOPHILS % 0.4 % (0.0-1.0); EOSINOPHILS # (AUTO) 0.2 (0.0-0.4); EOSINOPHILS % 2.6 % (0.0-6.0); HEMATOCRIT 32.3 % (38.2-49.6); HEMOGLOBIN 10.6 g/dL (14.0-18.0); LYMPHOCYTES # (AUTO) 1.3 (1.0-3.2); LYMPHOCYTES % 19.1 % (18.0-39.1); MEAN CORPUSCULAR HEMOGLOBIN 30.9 pg (28-32); MEAN CORPUSCULAR HGB CONC 32.8 g/dL (31-35); MEAN CORPUSCULAR VOLUME 94.2 fL (81-99); MONOCYTES # (AUTO) 0.8 (0.2-0.8); MONOCYTES % 12.1 % (4.4-11.3); NEUTROPHILS # (AUTO) 4.5 (2.1-6.9); NEUTROPHILS % 65.4 % (38.7-80.0); PLATELET COUNT 213 x10e3/uL (140-360); RED BLOOD COUNT 3.43 x10e6/uL (4.3-5.7); RED CELL DISTRIBUTION WIDTH 14.2 % (11.7-14.4); WHITE BLOOD COUNT 6.87 x10e3/uL (4.8-10.8)
[2024-09-19 06:14] LABS: ANION GAP 14.7 mmol/L (8-16); CALCIUM 8.4 mg/dL (8.4-10.2); CREATININE, SERUM 2.58 mg/dL (0.72-1.25); MAGNESIUM 1.9 MG/DL (1.3-2.1); PHOSPHORUS 4.8 MG/DL (2.3-4.7); POTASSIUM 3.7 mmol/L (3.5-5.1)
[2024-09-19] MEDS ORDERED: FUROSEMIDE40 MG PO (07:03)
[2024-09-19] MEDS ORDERED: CEPHALEXIN500 MG PO (07:03)
[2024-09-19 07:50] VITALS: BP 120/93; PULSE 79; RESP 19; TEMP 97.9; O2SAT 99
[2024-09-19 09:10] VITALS: BP 120/93; PULSE 79; RESP 19; TEMP 97.9; O2SAT 99
[2024-09-19 10:50] VITALS: BP 120/93
[2024-09-19 11:03] VITALS: PULSE 80; RESP 18; O2SAT 98
== END 2024-09-19 14:20 | disposition home or self-care (01) | DRG 690 ==
LOC: ER 13:49 → ERHOLD 15:24 → MED/SURG2 16:25 → OBSVTOIN 09-16 13:57
PROVIDERS: ADMIT Internal Medicine; ATTEND Internal Medicine
DX: N39.0 Urinary tract infection, site not specified (principal); N18.4 Chronic kidney disease, stage 4 (severe); I16.1 Hypertensive emergency; I48.20 Chronic atrial fibrillation, unspecified; Z79.01 Long term (current) use of anticoagulants; Z16.24 Resistance to multiple antibiotics; D68.8 Other specified coagulation defects; T45.515A Adverse effect of anticoagulants, initial encounter; R31.0 Gross hematuria; B96.20 Unspecified Escherichia coli [E. coli] as the cause of diseases classified elsewhere; K80.20 Calculus of gallbladder without cholecystitis without obstruction; N40.1 Benign prostatic hyperplasia with lower urinary tract symptoms; R33.8 Other retention of urine; I12.9 Hypertensive chronic kidney disease with stage 1 through stage 4 chronic kidney disease, or unspecified chronic kidney disease; E11.22 Type 2 diabetes mellitus with diabetic chronic kidney disease; Z79.84 Long term (current) use of oral hypoglycemic drugs; N41.1 Chronic prostatitis; R31.29 Other microscopic hematuria; R35.0 Frequency of micturition; R39.198 Other difficulties with micturition; N32.3 Diverticulum of bladder; E83.51 Hypocalcemia; J44.9 Chronic obstructive pulmonary disease, unspecified; E78.5 Hyperlipidemia, unspecified; F43.10 Post-traumatic stress disorder, unspecified; I89.0 Lymphedema, not elsewhere classified; G47.33 Obstructive sleep apnea (adult) (pediatric); F17.200 Nicotine dependence, unspecified, uncomplicated; D63.1 Anemia in chronic kidney disease; E66.9 Obesity, unspecified; Z68.36 Body mass index [BMI] 36.0-36.9, adult; Z71.3 Dietary counseling and surveillance; I25.10 Atherosclerotic heart disease of native coronary artery without angina pectoris; I87.8 Other specified disorders of veins; F41.9 Anxiety disorder, unspecified; R81 Glycosuria; Y92.009 Unspecified place in unspecified non-institutional (private) residence as the place of occurrence of the external cause; Z71.81 Spiritual or religious counseling; Z79.82 Long term (current) use of aspirin; Z79.899 Other long term (current) drug therapy
CPT/HCPCS: 36415; 74176; 80048; 80053; 80061; 81001; 82948; 83036; 83605; 83735; 84100; 85025; 85610; 85730; 87040; 87086; 87186; 93005; 94799; 99284; G0378; J0360; J0696; J1940; J2405; J7030